=== PATIENT | male | born 1975 | race Caucasian/White ===

== ENCOUNTER 2016-11-07 11:26 | Emergency (ER) | payer OTHER ==
[2016-11-07 13:23] LABS: BASOPHIL 0.5 % (0-2); EOSINOPHIL 0 % (0-5); HCT 49.3 % (42.0-52.0); HGB 17.7 g/dl (13.2-18.0); LYMPHOCYTE 26.9 % (15-48); MCH 29.9 pg (25.0-31.0); MCHC 35.9 g/dL (32.0-36.0); MCV 83.4 fL (78.0-100.0); MONOCYTE 6.7 % (0-12); MPV 10.2 fL (6.0-9.5); NEUTROPHIL 65.9 % (41-80); PLT 261 K/uL (150-400); RBC 5.91 M/uL (4.70-6.00); RDW 11.8 % (11.5-14.0); WBC 7.4 K/uL (4.0-10.5)
[2016-11-07 13:40] LABS: CREATININE 0.7 mg/dL (0.7-1.2); POTASSIUM 4.2 mmol/L (3.5-5.1)
== END 2016-11-07 16:30 | disposition home or self-care (01) ==
LOC: FER 11:26
PROVIDERS: Internal Medicine
DX: L03.314 Cellulitis of groin (principal); E11.9 Type 2 diabetes mellitus without complications; F17.210 Nicotine dependence, cigarettes, uncomplicated
CPT/HCPCS: 36415; 72193; 80048; 85025; J2405; Q9967